=== PATIENT | male | born 1945 | race Caucasian/White ===

== ENCOUNTER 2018-07-01 11:28 | Day surgery (SDC) | payer MEDICARE, OTHER ==
[~2018-07-01 11:28] MED LIST: ACETAMINOPHEN 1,000 MG/100 ML BTL IVPB ONE; CEFAZOLIN 2 Gram 2 GM/50 ML BAG IVPB SCH; MORPHINE SULFATE 4 MG/ML VIAL ONE
[2018-07-01] MEDS ORDERED: FENTANYL PF 100MCG/2ML VIAL IV ONE (11:29)
[2018-07-01] MEDS ORDERED: SEVOFLURANE 250 ML INH ONE (11:29)
[2018-07-01] MEDS ORDERED: MIDAZOLAM HCL 2MG/2ML VIAL IV ONE (11:29)
[2018-07-01] MEDS ORDERED: LIDOCAINE 2% MDV (20MG/ML) 20ML VIAL IV ONE (11:29)
[2018-07-01] MEDS ORDERED: ONDANSETRON HCL IV 4 MG/2 ML VIAL IVP ONE (11:29)
[2018-07-01] MEDS ORDERED: PROPOFOL 10 MG/ML VIAL IV ONE (11:29)
[2018-07-01] MEDS ORDERED: METHYLPREDNISOLONE 40MG/VIAL IU ONE (13:59)
[2018-07-01] MEDS ORDERED: BUPIVACAINE 0.5% W/EPI MPF 30 ML VIAL SQ ONE (13:59)
[2018-07-01] MEDS ORDERED: MORPHINE SULFATE 4 MG/ML VIAL IVP ONE (14:00)
[2018-07-01] MEDS ORDERED: RINGERS SOLUTION,LACTATED 150 ML IV ONE (14:14)
--- NOTE | 2018-07-03 10:00 | Operative Note ---
DATE OF SURGERY: 07/01/2018 PREOPERATIVE DIAGNOSIS: Internal derangement left knee. POSTOPERATIVE DIAGNOSES: 1. Grade 3 chondromalacia of the notch. 2. Diffuse synovitis. 3. Complex tear involving the posterior horn of the medial meniscus. 4. Grade 3 chondromalacia medial femoral condyle. OPERATION: 1. Left knee arthroscopy with partial medial meniscectomy. 2. Left knee arthroscopy with complete synovectomy. 3. Left knee arthroscopy and chondroplasty of the medial femoral condyle and notch. SURGEON: Kye Dykes M.D. ANESTHESIA: General. PREPARATION: Chloraprep. INDIVIDUAL CONSIDERATIONS: None. PROCEDURE: The patient was taken to the operating room and placed supine on the operating room table. He had a successful induction of a general anesthetic. His left lower extremity was prepped and draped in the usual fashion. The patient had a superior lateral inflow cannula placed. The skin was infiltrated with 0.5% Marcaine with epinephrine prior. A blood-tinged effusion was drained. The knee was inflated with normal saline. An inferior medial and an inferior lateral portal were made in a similar fashion. The arthroscope was introduced through the inferior lateral portal up into the pouch. The patellofemoral joint basically showed quite a bit of synovitis in the pouch in both gutters, which was debrided out with a shaver. The patella looked okay, but in the notch there was some grade 3 change and loose cartilage centrally which is smoothed off with the shaver, medially a large ulcer in the medial femoral condyle from, I would say, of about 20 to 70 degrees of flexion with loose cartilage which is debrided, but luckily not down to bone, although there was a complex tear involving the posterior horn of the medial meniscus. Most of this is debrided out with basket forceps and a shaver. In the notch, the cruciates were normal, the lateral compartment structures were normal. The knee was then irrigated out with saline to remove loose floating debris. The portals were closed with dom, and 15 mL of 0.5% Marcaine with epinephrine, along with 4 mg of morphine and 40 mg of Depo-Medrol were injected into the knee and a sterile bulky compressive dressing is applied. The patient tolerated the procedures well. The needle and sponge counts were correct. Estimated blood loss was minimal. He was taken back to recovery in good condition. There were no complications. [facility]
== END 2018-07-01 15:00 | disposition home or self-care (01) ==
LOC: SUR 11:28
PROVIDERS: ATTEND Orthopaedic Surgery
DX: S83.232A Complex tear of medial meniscus, current injury, left knee, initial encounter (principal); M94.262 Chondromalacia, left knee; M65.9 Synovitis and tenosynovitis, unspecified; I10 Essential (primary) hypertension; E78.00 Pure hypercholesterolemia, unspecified; M10.9 Gout, unspecified; J44.9 Chronic obstructive pulmonary disease, unspecified; J45.909 Unspecified asthma, uncomplicated; G47.33 Obstructive sleep apnea (adult) (pediatric)
CPT/HCPCS: J1030; J2270; J2405; J7120